=== PATIENT | male | born 1985 | race American Indian/Alaskan Native ===

== ENCOUNTER 2021-10-14 09:26 | Emergency (ER) | payer SELFPAY ==
--- NOTE | 2021-10-14 10:42 | Emergency Department Report ---
Chief Complaint: Dental/Oral Stated Complaint: TOOTH PAIN/BAD INFECTION Time Seen by Provider: 10/14/21 10:37 - HPI History of Present Illness: This is a 36 y.o. male presents to the clinic with dental pain to right upper tooth for weeks. Patient states he completed antibiotics prescribed which was controlling pain. Patient states when he finished medication the pain returned. Patient reports pain 10 out of 10 on pain scale constant throbbing intensity. Patient states he had 10 to make an appointment with a dentist but unsuccessful. Denies drooling, swelling, difficulty swallowing, numbness tingling, or focal changes. - ROS Review of Systems: ROS: Stated complaint: Right upper dental pain Other details as noted in HPI Comment: All other systems reviewed and negative - Exam Vital Signs: Vital Signs 10/14/21 09:30 Temperature 98.9 F Pulse Rate 69 Respiratory 18 Rate Blood Pressure 112/71 O2 Sat by Pulse 98 Oximetry MSE screening note: Focused history and physical exam performed. Due to findings the following was ordered: ED Disposition for MSE Condition: Stable
[2021-10-14] MEDS ORDERED: HYDROcodone/ACETAMINOPHEN 5-325 MG TAB PO ONE (11:16)
--- NOTE | 2021-10-14 11:17 | Emergency Department Report ---
ED ENT HPI - General Chief complaint: Dental/Oral Stated complaint: TOOTH PAIN/BAD INFECTION Time Seen by Provider: 10/14/21 10:37 Source: patient Mode of arrival: Ambulatory Limitations: No Limitations - History of Present Illness Initial comments: This is a 36 y.o. male presents to the clinic with dental pain to right upper tooth for weeks. Patient states he completed antibiotics prescribed which was controlling pain. Patient states when he finished medication the pain returned. Patient reports pain 10 out of 10 on pain scale constant throbbing intensity. Patient states he had 10 to make an appointment with a dentist but unsuccessful. Denies drooling, swelling, difficulty swallowing, numbness tingling, or focal changes. MD complaint: tooth pain Context- Dental: history of dental caries, poor dental care - Related Data Previous Rx's Medication Instructions Recorded Last Taken Type Acetaminophen/Codeine [Tylenol 1 tab PO Q6H PRN #12 tab 10/14/21 Unknown Rx /Codeine # 3 tab] ED Dental HPI - General Chief complaint: Dental/Oral Stated complaint: TOOTH PAIN/BAD INFECTION Time Seen by Provider: 10/14/21 10:37 Source: patient Mode of arrival: Ambulatory Limitations: No Limitations - Related Data Previous Rx's Medication Instructions Recorded Last Taken Type Acetaminophen/Codeine [Tylenol 1 tab PO Q6H PRN #12 tab 10/14/21 Unknown Rx /Codeine # 3 tab] ED Review of Systems ROS: Stated complaint: TOOTH PAIN/BAD INFECTION Other details as noted in HPI Constitutional: denies: chills, fever ENT: dental pain Respiratory: denies: cough, shortness of breath, wheezing Cardiovascular: as per HPI Skin: denies: rash, lesions Neurological: denies: headache, weakness, paresthesias Psychiatric: denies: anxiety, depression ED Past Medical Hx - Past Medical History Previous Medical History?: No - Surgical History Past Surgical History?: No - Social History Smoking Status: Current Every Day Smoker - Medications Home Medications: Home Medications Medication Instructions Recorded Confirmed Last Taken Type Acetaminophen/Codeine [Tylenol 1 tab PO Q6H PRN #12 tab 10/14/21 Unknown Rx /Codeine # 3 tab] ED Physical Exam - General Limitations: No Limitations General appearance: alert, in no apparent distress - Head Head exam: Present: atraumatic, normocephalic - ENT ENT exam: Present: normal orophraynx, mucous membranes moist - Expanded ENT Exam Expanded Mouth exam: Present: tongue normal. Absent: drooling, trismus, muffled voice, tongue elevation Teeth exam: Present: dental caries, dental tenderness #. Absent: gingival enlargement 1 - Dental Tenderness, Other Throat exam: Positive: normal inspection - Neck Neck exam: Present: normal inspection - Respiratory Respiratory exam: Present: normal lung sounds bilaterally. Absent: respiratory distress - Cardiovascular Cardiovascular Exam: Present: regular rate, normal rhythm. Absent: systolic murmur, diastolic murmur, rubs, gallop ED Course Vital Signs 10/14/ 09:30 Temperature 98.9 F Pulse Rate 69 Respiratory 18 Rate Blood Pressure 112/71 O2 Sat by Pulse 98 Oximetry ED Medical Decision Making - Medical Decision Making This is a 36-year-old male that presents with right-sided upper dental pain #2 for 3 days. Patient is stable and was examined by me. Given norco once in ER. Susceptible of dental dental caries. Start tylenol #3. Discussed plan with patient. He agreed with ER plan. Discharged home stable. Follow up with dentist. Critical care attestation.: If time is entered above; I have spent that time in minutes in the direct care of this critically ill patient, excluding procedure time. ED Disposition Clinical Impression: Pain, dental, Dental caries Disposition: HOME / SELF CARE / HOMELESS Is pt being admited?: No Condition: Stable Prescriptions: Acetaminophen/Codeine [Tylenol /Codeine # 3 tab] 1 tab PO Q6H PRN #12 tab PRN Reason: Pain , Severe (7-10) Referrals: [facility] [Outside] - 3-5 Days [facility] [Outside] - 3-5 Days Time of Disposition: 11:18
[2021-10-14 11:56] VITALS: BP 128/56
== END 2021-10-14 12:00 | disposition home or self-care (01) ==
LOC: ED 09:26
DX: K08.89 Other specified disorders of teeth and supporting structures (principal); K02.9 Dental caries, unspecified
CPT/HCPCS: 99282